=== PATIENT | female | born 1965 | race Asian ===

== ENCOUNTER 2019-09-29 21:53 | Emergency (ER) | payer MEDICAID ==
[~2019-09-29] VITALS: Ht 160 cm; Wt 55.3 kg
[2019-09-29 21:59] VITALS: Ht 160 cm; Wt 55.3 kg
[2019-09-29 23:30] LABS: CALCIUM 8.1 mg/dL (8.5-10.1); CARBON DIOXIDE 27.3 mmol/L (21-32); CHLORIDE SERUM 104 mmol/L (98-107); CREATININE SERUM 0.5 mg/dL (0.6-1.0); GFR1 > 60 mL/min; GLUCOSE SERUM 104 mg/dL (74-106); POTASSIUM SERUM 3.3 mmol/L (3.5-5.1); SODIUM SERUM 136 mmol/L (136-145)
[2019-09-30 02:12] VITALS: BP 126/46
== END 2019-09-30 02:12 | disposition home or self-care (01) ==
LOC: ED 21:53
PROVIDERS: Emergency Medicine
DX: S10.93XA Contusion of unspecified part of neck, initial encounter (principal); W18.30XA Fall on same level, unspecified, initial encounter; Y93.89 Activity, other specified; Y92.89 Other specified places as the place of occurrence of the external cause; Y99.8 Other external cause status
CPT/HCPCS: J1885; J7030; Q0092; Q9967

== ENCOUNTER 2020-04-14 03:28 | Emergency (ER) | payer OTHER ==
[~2020-04-14] VITALS: Ht 160 cm; Wt 52.2 kg
[2020-04-14 03:34] VITALS: Ht 160 cm; Wt 52.2 kg
[2020-04-14 04:07] LABS: BASOPHIL % 1.4 % (0-2); PLATELET COUNT 242 x10^3mcL (130-400)
[2020-04-14 04:22] LABS: CALCIUM 9.1 mg/dL (8.5-10.1); CHLORIDE SERUM 103 mmol/L (98-107); CREATININE SERUM 0.9 mg/dL (0.6-1.0); GFR1 > 60 mL/min; GLUCOSE SERUM 118 mg/dL (74-106); POTASSIUM SERUM 3.6 mmol/L (3.5-5.1); SODIUM SERUM 138 mmol/L (136-145)
[2020-04-14 04:27] LABS: ALBUMIN 3.4 g/dL (3.4-5.0); ALKALINE PHOSPHATASE 85 U/L (46-116); ALT/SGPT 28 U/L (14-59); AST/SGOT 18 U/L (15-37); BILIRUBIN TOTAL 0.21 mg/dL (0.20-1.00); TOTAL PROTEIN, SERUM 6.9 g/dL (6.4-8.2)
[2020-04-14 05:12] VITALS: BP 99/55
== END 2020-04-14 05:12 | disposition home or self-care (01) ==
LOC: ED 03:28
PROVIDERS: Emergency Medicine
DX: R07.89 Other chest pain (principal)
CPT/HCPCS: J1885; Q0092